=== PATIENT | female | born 1965 | race Caucasian/White ===

== ENCOUNTER → 2016-05-24 | Outpatient (REF) | payer BC ==
[2016-05-24 17:33] LABS: ALBUMIN 3.9 GM/DL (3.2-5.2); ALBUMIN/GLOBULIN RATIO 1.11 (1.00-1.93); ALKALINE PHOSPHATASE 118 U/L (45-117); ALT/SGPT 66 U/L (12-78); ANION GAP 8 MEQ/L (8-16); AST/SGOT 38 U/L (15-37); BILIRUBIN,TOTAL 0.3 MG/DL (0.2-1.0); BLOOD UREA NITROGEN 9 MG/DL (7-18); CALCIUM LEVEL 9.4 MG/DL (8.5-10.1); CARBON DIOXIDE LEVEL 30 MEQ/L (21-32); CHLORIDE LEVEL 104 MEQ/L (98-107); CHOLESTEROL LEVEL 229 MG/DL (<200); CREATININE FOR GFR 0.98 MG/DL (0.55-1.02); GLOMERULAR FILTRATION RATE > 60.0 (>51); GLUCOSE, FASTING 106 MG/DL (70-105); MAGNESIUM LEVEL 2.1 MG/DL (1.8-2.4); POTASSIUM SERUM 4.5 MEQ/L (3.5-5.1); SODIUM LEVEL 142 MEQ/L (136-145); TOTAL PROTEIN 7.4 GM/DL (6.4-8.2); TRIGLYCERIDES LEVEL 312 MG/DL (<150)
== END ==
LOC: M SFHCLACO 09:24
PROVIDERS: ATTEND Physician Assistant
DX: E78.2 Mixed hyperlipidemia (principal); K21.9 Gastro-esophageal reflux disease without esophagitis; E61.2 Magnesium deficiency

== ENCOUNTER → 2016-09-27 | Outpatient (REF) | payer BC ==
[~2016-09-27] MED LIST: COLE625TAB; ESOM1CAP5; EZET10TA; LEVO25TA5; OMEG1CAP4; PARO40TA2; ZOFR4TAB3 PO
[2016-09-27 15:56] LABS: ALBUMIN 3.7 GM/DL (3.2-5.2); ALBUMIN/GLOBULIN RATIO 1.03 (1.00-1.93); ALKALINE PHOSPHATASE 112 U/L (45-117); ALT/SGPT 53 U/L (12-78); ANION GAP 4 MEQ/L (8-16); AST/SGOT 38 U/L (15-37); BILIRUBIN,TOTAL 0.5 MG/DL (0.2-1.0); BLOOD UREA NITROGEN 11 MG/DL (7-18); CALCIUM LEVEL 8.8 MG/DL (8.5-10.1); CARBON DIOXIDE LEVEL 28 MEQ/L (21-32); CHLORIDE LEVEL 109 MEQ/L (98-107); CHOLESTEROL LEVEL 225 MG/DL (<200); CREATININE FOR GFR 0.91 MG/DL (0.55-1.02); GLOMERULAR FILTRATION RATE > 60.0 (>51); GLUCOSE, FASTING 109 MG/DL (70-105); MAGNESIUM LEVEL 2.1 MG/DL (1.8-2.4); SODIUM LEVEL 141 MEQ/L (136-145); TOTAL PROTEIN 7.3 GM/DL (6.4-8.2); TRIGLYCERIDES LEVEL 248 MG/DL (<150)
== END ==
LOC: M SFHCLACO 08:02
PROVIDERS: ATTEND Physician Assistant
DX: E78.2 Mixed hyperlipidemia (principal); K21.9 Gastro-esophageal reflux disease without esophagitis; E61.2 Magnesium deficiency; E03.9 Hypothyroidism, unspecified

== ENCOUNTER 2016-12-25 16:53 | Emergency (ER) | payer BC ==
[~2016-12-25] VITALS: Ht 157.5 cm; Wt 77.3 kg
[2016-12-25] MEDS ORDERED: EZET10TA (17:08)
[2016-12-25] MEDS ORDERED: OMEG1CAP4 (17:08)
[2016-12-25] MEDS ORDERED: COLE625TAB (17:08)
[2016-12-25] MEDS ORDERED: PARO40TA2 (17:08)
[2016-12-25] MEDS ORDERED: LEVO25TA5 (17:08)
[2016-12-25] MEDS ORDERED: ESOM1CAP5 (17:08)
[2016-12-25] MEDS ORDERED: ONDANSETRON 4MG/2ML VIAL (J2405) IV ONE (17:45)
[2016-12-25] MEDS ORDERED: NS 1,000 ML IV ONE (17:45)
[2016-12-25] MEDS ORDERED: PANTOPRAZOLE 40MG INJ (PROTONIX) (C9113) IV ONE (17:45)
[2016-12-25 18:23] LABS: BASO % 0.5 % (0.0-1.0); EOS # 0.1 10^3/uL (0.0-0.50); EOS % 1.4 % (0.0-3.0); LYMPH # 1.5 10^3/uL (1.5-4.5); LYMPH % 41.4 % (24.0-44.0); MEAN CORPUSCULAR HEMOGLOBIN 24.9 pg (27.0-33.0); MEAN CORPUSCULAR HGB CONC 29.9 g/dl (32.0-36.5); MEAN CORPUSCULAR VOLUME 83.1 fl (80.0-96.0); MONO # 0.3 10^3/uL (0.0-0.8); NEUTROPHILS # 1.8 10^3/uL (1.8-7.7); NEUTROPHILS % 47.7 % (36.0-66.0); PLATELET COUNT, AUTOMATED 229 10^3/uL (150-450); RED CELL DISTRIBUTION WIDTH 15.1 % (11.5-14.5); WHITE BLOOD COUNT 3.7 10^3/uL (4.0-10.0)
[2016-12-25 18:36] LABS: ADD MORPHOLOGY? NO
[2016-12-25 18:47] LABS: ALBUMIN 3.5 GM/DL (3.2-5.2); ALBUMIN/GLOBULIN RATIO 0.88 (1.00-1.93); ALKALINE PHOSPHATASE 91 U/L (45-117); ALT/SGPT 79 U/L (12-78); AMYLASE 26 U/L (25-115); ANION GAP 8 MEQ/L (8-16); AST/SGOT 74 U/L (15-37); BILIRUBIN,DIRECT < 0.1 MG/DL (0.0-0.2); BILIRUBIN,TOTAL 0.4 MG/DL (0.2-1.0); BLOOD UREA NITROGEN 11 MG/DL (7-18); CALCIUM LEVEL 8.8 MG/DL (8.5-10.1); CARBON DIOXIDE LEVEL 26 MEQ/L (21-32); CHLORIDE LEVEL 103 MEQ/L (98-107); CREATININE FOR GFR 0.87 MG/DL (0.55-1.02); GLOMERULAR FILTRATION RATE > 60.0 (>51); GLUCOSE, FASTING 84 MG/DL (70-105); POTASSIUM SERUM 3.2 MEQ/L (3.5-5.1); SODIUM LEVEL 137 MEQ/L (136-145); TOTAL PROTEIN 7.5 GM/DL (6.4-8.2)
[2016-12-25] MEDS ORDERED: ZOFR4TAB3 PO (21:01)
[2016-12-25 21:15] VITALS: BP 138/68
--- NOTE | 2016-12-26 09:28 | ECGEPIP ---
Stationary ECG Study [facility] - ED Test Date: 2016-12-25 Pat Name: JORGE ALBERTO LUJAN Department: Room: - Gender: F Recruitment Manager: winter : 1965 Requested By: JUJU MIN Order Number: [id number] Reading MD: Lauren Kothari Measurements Intervals [place] Rate: 86 P: 29 ND: 153 QRS: 3 QRSD: 88 T: 36 QT: 370 QTc: 445 Interpretive Statements SINUS RHYTHM MINIMAL VOLTAGE CRITERIA FOR LVH, CONSIDER NORMAL VARIANT NO PRIOR FOR COMPARISON Electronically Signed On 12-26-2016 9:28:04 EDT by Lauren Kothari
--- NOTE | 2017-01-11 14:35 | REP ---
CHEST X-RAY: Outside film interpretation. HISTORY: Chest pain. FINDINGS: Frontal and lateral chest radiographs from [facility] dated December 25, 2016 time stamped 03:12 p.m. are presented. There is an area of linear pleuroparenchymal opacity at the left base which may reflect discoid atelectasis or pleuroparenchymal scarring. The lungs are otherwise well inflated and clear. Pleural angles are sharp. Cardiomediastinal silhouette is unremarkable. No significant bony abnormalities seen. IMPRESSION: Linear pleuroparenchymal opacity left base may reflect scarring or discoid atelectasis. Otherwise no active disease. Signed by Adam Granado MD 01/11/2017 03:15 P
== END 2016-12-25 21:18 | disposition home or self-care (01) ==
LOC: M ED 16:53
DX: K52.9 Noninfective gastroenteritis and colitis, unspecified (principal); I51.9 Heart disease, unspecified; Z79.899 Other long term (current) drug therapy
CPT/HCPCS: 80048; 80076; 81001; 82150; 82550; 82553; 83690; 85025; 87086; 93005; 93041; 96361; 96374; 96375; 99285; C9113; J2405

== ENCOUNTER → 2017-03-28 | Outpatient (REF) | payer BC ==
[2017-03-28 15:25] LABS: ALBUMIN 3.5 GM/DL (3.2-5.2); ALKALINE PHOSPHATASE 108 U/L (45-117); ALT/SGPT 35 U/L (12-78); ANION GAP 6 MEQ/L (8-16); AST/SGOT 31 U/L (7-37); BILIRUBIN,TOTAL 0.3 MG/DL (0.2-1.0); BLOOD UREA NITROGEN 12 MG/DL (7-18); CALCIUM LEVEL 8.5 MG/DL (8.5-10.1); CARBON DIOXIDE LEVEL 29 MEQ/L (21-32); CHLORIDE LEVEL 109 MEQ/L (98-107); CHOLESTEROL LEVEL 185 MG/DL (<200); CREATININE FOR GFR 0.82 MG/DL (0.55-1.02); GLOMERULAR FILTRATION RATE > 60.0 (>51); GLUCOSE, FASTING 103 MG/DL (70-105); MAGNESIUM LEVEL 2.1 MG/DL (1.8-2.4); POTASSIUM SERUM 4.3 MEQ/L (3.5-5.1); SODIUM LEVEL 144 MEQ/L (136-145); TRIGLYCERIDES LEVEL 226 MG/DL (<150)
== END ==
LOC: M SFHCLACO 09:22
DX: E78.2 Mixed hyperlipidemia (principal); K21.9 Gastro-esophageal reflux disease without esophagitis; E61.2 Magnesium deficiency; E03.9 Hypothyroidism, unspecified
CPT/HCPCS: 83735

== ENCOUNTER → 2017-09-17 | Outpatient (REF) | payer BC ==
[2017-09-20 14:59] LABS: HPV HYBRID CAPTURE II Negative (Negative)
== END ==
LOC: M SFHCWAGY 14:23
DX: N95.0 Postmenopausal bleeding (principal); Z12.4 Encounter for screening for malignant neoplasm of cervix
CPT/HCPCS: G0123

== ENCOUNTER → 2017-09-24 | Outpatient (CLI) | payer BC | LOC: M WHC 14:51 | DX: N95.0 Postmenopausal bleeding (principal) | CPT/HCPCS: 76830 ==

== ENCOUNTER → 2017-10-09 | Outpatient (REF) | payer BC | LOC: M SFHCWAGY 09:42 | DX: N95.0 Postmenopausal bleeding (principal) | CPT/HCPCS: 88304 ==

== ENCOUNTER → 2022-09-06 | Outpatient (CLI) | payer BC ==
[~2022-09-06] MED LIST changes: +COLE625T17; -COLE625TAB; -EZET10TA; +EZET10TA21; -OMEG1CAP4; +OMEG1CAP85; +ZOFR4TAB14 PO; -ZOFR4TAB3 PO
== END ==
LOC: M SLEEP HO 14:39
PROVIDERS: ATTEND Nurse Practitioner Family
DX: G47.33 Obstructive sleep apnea (adult) (pediatric) (principal); R06.83 Snoring
CPT/HCPCS: G0399 ×2

== ENCOUNTER → 2022-10-09 | Outpatient (CLI) | payer BC | LOC: M SLEEP 20:00 | PROVIDERS: ATTEND Nurse Practitioner Family | DX: G47.33 Obstructive sleep apnea (adult) (pediatric) (principal) ==

== ENCOUNTER → 2022-10-17 | Outpatient (REF) | payer BC | LOC: M SFHCWAGY 15:25 | PROVIDERS: ATTEND Nurse Practitioner Family | DX: Z12.4 Encounter for screening for malignant neoplasm of cervix (principal) | CPT/HCPCS: 87624; G0123 ==

== ENCOUNTER → 2022-10-24 | Outpatient (CLI) | payer BC | LOC: M WHC 08:01 | PROVIDERS: ATTEND Nurse Practitioner Family | DX: N94.10 Unspecified dyspareunia (principal) ==

== ENCOUNTER → 2023-07-22 | Outpatient (REF) | payer BC ==
[2023-07-22 18:01] LABS: HEMOGLOBIN A1c 6.1 % (4.0-6.0)
== END ==
LOC: M SFHCADAM 12:12
PROVIDERS: ATTEND Family Medicine
DX: R73.09 Other abnormal glucose (principal)

== ENCOUNTER → 2023-07-22 | Outpatient (CLI) | payer BC | LOC: M ADAMS 12:14 | PROVIDERS: ATTEND Family Medicine | DX: Z53.9 Procedure and treatment not carried out, unspecified reason (principal) ==

== ENCOUNTER → 2023-08-15 | Outpatient (CLI) | payer BC | LOC: M RAD 09:48 | PROVIDERS: ATTEND Family Medicine | DX: R79.89 Other specified abnormal findings of blood chemistry (principal) ==

== ENCOUNTER → 2023-10-14 | Outpatient (REF) | payer BC ==
[~2023-10-14] MED LIST changes: +ESOM1CAP20; -ESOM1CAP5; +OMEG-28; -OMEG1CAP85
== END ==
LOC: M SFHCADAM 15:03
PROVIDERS: ATTEND Family Medicine
DX: R30.0 Dysuria (principal)

== ENCOUNTER → 2023-10-30 | Outpatient (REF) | payer BC ==
[2023-10-31 13:11] LABS: APPEARANCE, URINE CLEAR (CLEAR); BACTERIA, URINE AUTO NEGATIVE (NEGATIVE); BILIRUBIN, URINE AUTO NEGATIVE (NEGATIVE); BLOOD, URINE BLOOD NEGATIVE (NEGATIVE); COLOR, URINE YELLOW (YELLOW); GLUCOSE, URINE (UA) AUTO NEGATIVE (NEGATIVE); KETONE, URINE AUTO NEGATIVE (NEGATIVE); LEUKOCYTE ESTERASE, URINE AUTO NEGATIVE (NEGATIVE); NITRITE, URINE AUTO NEGATIVE (NEGATIVE); PROTEIN, URINE AUTO NEGATIVE (NEGATIVE); RBC, URINE AUTO 0 /HPF (0-3); SPECIFIC GRAVITY URINE AUTO 1.013 (1.002-1.035); SQUAMOUS EPITHELIAL CELL UR AU 0 /HPF (0-6); WBC, URINE AUTO 4 /HPF (0-3)
== END ==
LOC: M SFHCADAM 15:35
PROVIDERS: ATTEND Family Medicine
DX: R10.9 Unspecified abdominal pain (principal)

== ENCOUNTER → 2023-11-26 | Outpatient (CLI) | payer BC | LOC: M WHC 14:12 | PROVIDERS: ATTEND Nurse Practitioner Family | DX: Z12.31 Encounter for screening mammogram for malignant neoplasm of breast (principal) ==

== ENCOUNTER → 2024-01-10 | Outpatient (CLI) | payer BC | LOC: M PLAIMG 14:37 | PROVIDERS: ATTEND Physician Assistant | DX: N20.0 Calculus of kidney (principal) ==

== ENCOUNTER → 2024-01-15 | Outpatient (REF) | payer BC | LOC: M SFHCADAM 01-14 13:05 | PROVIDERS: ATTEND Family Medicine | DX: R35.0 Frequency of micturition (principal) ==

== ENCOUNTER → 2024-01-23 | Outpatient (CLI) | payer BC ==
[~2024-01-23] MED LIST changes: +ISOVUE-370 76% 100ML VIAL ONE
== END ==
LOC: M PLAIMG 09:00
PROVIDERS: ATTEND Family Medicine
DX: N20.0 Calculus of kidney (principal)
CPT/HCPCS: 74178; Q9967